=== PATIENT | male | born 1985 | race Caucasian/White ===

== ENCOUNTER 2020-11-25 21:23 | Emergency (ER) | payer MEDICAID ==
[2020-11-26 04:31] VITALS: BP 126/80
== END 2020-11-26 08:44 | disposition home or self-care (01) ==
LOC: EDH 21:23
DX: F20.9 Schizophrenia, unspecified (principal); Z60.0 Problems of adjustment to life-cycle transitions; F17.200 Nicotine dependence, unspecified, uncomplicated